=== PATIENT | male | born 1985 | race Two or more races ===

== ENCOUNTER 2017-01-28 03:10 | Emergency (ER) | payer SELFPAY ==
[2017-01-28] MEDS ORDERED: LIDOCAINE 1% INJ-PF (10 MG/ML) 30 ML SDV ONE (03:49)
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
[2017-01-28 04:42] VITALS: BP 128/88
== END 2017-01-28 04:40 | disposition home or self-care (01) ==
LOC: ER 03:10
PROC: 3E0T3GC Introduction of Other Therapeutic Substance into Peripheral Nerves and Plexi, Percutaneous Approach (ICD-10-PCS; principal; 2017-01-28)
DX: S60.442A External constriction of right middle finger, initial encounter (principal); W49.04XA Ring or other jewelry causing external constriction, initial encounter; F17.200 Nicotine dependence, unspecified, uncomplicated
CPT/HCPCS: 99283

== ENCOUNTER 2017-03-15 08:45 | Emergency (ER) | payer SELFPAY ==
[2017-03-15] MEDS ORDERED: PENICILLIN V POTASSIUM 500 MG TABLET PO ONE (09:09)
[2017-03-15] MEDS ORDERED: OXYCODONE-ACETAMINOPHEN 5-325 MG TABLET PO ONE (09:09)
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
[2017-03-15 09:40] VITALS: BP 152/93
== END 2017-03-15 09:37 | disposition home or self-care (01) ==
LOC: ER 08:45
DX: K08.89 Other specified disorders of teeth and supporting structures (principal); R03.0 Elevated blood-pressure reading, without diagnosis of hypertension; F17.200 Nicotine dependence, unspecified, uncomplicated
CPT/HCPCS: 99282